=== PATIENT | female | born 2000 | race Caucasian/White ===

== ENCOUNTER 2024-03-24 12:36 | Emergency (ER) | payer BC, OTHER ==
[2024-03-24 12:58] VITALS: BP 122/80; PULSE 85; RESP 16; TEMP 98.8; BMI 34.7
[2024-03-24 14:03] LABS: HEMATOCRIT 39.8 % (32.4-45.2); HEMOGLOBIN 13.3 G/dL (10.7-15.3); MCH 30.2 pg (25.7-33.7); MCHC 33.4 g/dl (32.0-36.0); MEAN CELL VOLUME 90.4 fl (80-96); MEAN PLT VOLUME 8.9 fl (7.5-11.1); PLATELET COUNT 280.8 10^3/uL (134-434); RDW 12.5 % (11.6-15.6); WHITE BLOOD COUNT 7.9 10^3/uL (4.0-10.8)
[2024-03-24 14:07] LABS: HCG,QUALITATIVE URINE Negative
[2024-03-24 14:13] LABS: ALBUMIN 3.8 g/dl (3.4-5.0); ALK PHOS 63 U/L (45-117); ANION GAP 8 mmol/L (4-13); BILIRUBIN,TOTAL 0.3 mg/dl (0.2-1); CALCIUM 9.5 mg/dl (8.5-10.1); CHLORIDE 101 mmol/L (98-107); CO2 27 mmol/L (21-32); CREATININE 0.7 mg/dl (0.6-1.3); GLUCOSE,RANDOM 95 mg/dl (74-106); POTASSIUM 4.3 mmol/L (3.5-5.1); SGOT/AST 32 U/L (15-37); SGPT/ALT 30 U/L (7-52); SODIUM 136 mmol/L (136-145); TOT PROT 7.3 g/dl (6.4-8.2)
[2024-03-24 14:31] LABS: EPITHELIAL CELLS 0-5 /hpf
[2024-03-24 14:48] LABS: PLATELET ESTIMATE ADEQUATE
== END 2024-03-24 14:43 | disposition home or self-care (01) ==
LOC: FER 12:36
DX: R00.2 Palpitations (principal); R42 Dizziness and giddiness; R20.2 Paresthesia of skin
CPT/HCPCS: 36415; 80053; 81003; 81015; 84484; 84703; 85027; 93005; 99284-25